=== PATIENT | female | born 1940 | race Caucasian/White ===

== ENCOUNTER 2019-03-16 20:03 | Emergency (ER) | payer OTHER ==
[2019-03-16 20:24] VITALS: BMI 16.2
--- NOTE | 2019-03-16 20:38 | PDOC ---
History of Present Illness - General Chief Complaint: Alcohol intoxication Stated Complaint: INTOX Time Seen by Provider: 03/16/19 20:29 History Source: Patient Exam Limitations: No Limitations - History of Present Illness Initial Comments: 03/16/19 20:37 Ruth Sanchez is an undomiciled 78F presenting for alcohol intoxication. Per EMS report, patient was [place] exposing herself along with bottles of vodka and Amaretto, has been seen at [facility] for intoxication multiple times almost every day the last 2 weeks. Per patient, she says she has no idea why she was brought to hospital and says her main complaint is that she is hungry. Says her last alcohol use was last night, one glass of scotch. Says her last meal was last night, probably a salad. Denies any withdrawal symptoms in the past. Also complains of SOB and worsening congestion with a chronic nonproductive cough. Denies fever/chills, nausea/vomiting/diarrhea, no abdominal pain. Has been living either on the streets or at a long term. Past History - Past Medical History Allergies/Adverse Reactions: Allergies Allergy/AdvReac Type Severity Reaction Status Date / Time No Known Allergies Allergy Verified 05/05/11 17:53 Asthma: No Cardiac Disorders: No COPD: No Diabetes: No GI Disorders: No Disorders: No HTN: No Kidney Stones: No Seizures: No - Surgical History Abdominal Surgery: No Appendectomy: No Cardiac Surgery: No Cholecystectomy: No Lung Surgery: No Neurologic Surgery: No Orthopedic Surgery: No - Psycho Social/Smoking Cessation Hx Smoking History: Never smoked Have you smoked in the past 12 months: No Number of Cigarettes Smoked Daily: 1 If you are a former smoker, when did you quit?: 3 months ago Information on smoking cessation initiated: No Hx Alcohol Use: Yes (03/16/2019) Drug/Substance Use Hx: No Substance Use Type: Alcohol Hx Substance Use Treatment: Yes Review of Systems - Review of Systems Able to Perform ROS?: Yes Constitutional: No: Chills, Fever HEENTM: No: Symptoms Reported Respiratory: Yes: Cough. No: Shortness of Breath, Productive cough, Hemoptysis Cardiac (ROS): No: Chest Pain, Irregular Heart Rate, Lightheadedness, Palpitations, Syncope, Chest Tightness ABD/GI: No: Constipated, Diarrhea, Nausea, Poor Appetite, Poor Fluid Intake, Vomiting : No: Symptoms Reported Musculoskeletal: No: Symptoms Reported Integumentary: No: Symptoms Reported Neurological: No: Symptoms reported Endocrine: No: Symptoms Reported Hematologic/Lymphatic: No: Symptoms Reported All Other Systems: Reviewed and Negative *Physical Exam - Vital Signs Last Vital Signs Temp Pulse Resp BP Pulse Ox 97.5 F L 87 16 103/61 95 03/16/19 20:21 03/16/19 20:21 03/16/19 20:21 03/16/19 20:21 03/16/19 20:21 - Physical Exam General Appearance: Yes: Appropriately Dressed, Disheveled, Thin. No: Apparent Distress HEENT: positive: EOMI, SHAWN, Normal Voice, Symmetrical, Pharynx Normal, Hearing Grossly Normal. negative: Scleral Icterus (R), Scleral Icterus (L), Pharyngeal Erythema, Tonsillar Exudate, Tonsillar Erythema Neck: positive: Trachea midline, Normal Thyroid, Supple. negative: Tender, Rigid, Lymphadenopathy (R), Lymphadenopathy (L) Respiratory/Chest: positive: Lungs Clear, Normal Breath Sounds. negative: Respiratory Distress, Accessory Muscle Use, Crackles, Rales, Rhonchi, Stridor, Wheezing Cardiovascular: positive: Regular Rhythm, Regular Rate. negative: Murmur Gastrointestinal/Abdominal: positive: Normal Bowel Sounds, Soft, Organomegaly. negative: Tender, Guarding, Rebound, Hernia Musculoskeletal: positive: Normal Inspection. negative: CVA Tenderness Extremity: positive: Normal Capillary Refill, Normal Range of Motion, Pedal Edema, Swelling, Other (mild 2+ pitting edema to both legs, non-tender, no sensory deficits, good strength). negative: Tender, Calf Tenderness Integumentary: positive: Normal Color, Dry, Warm. negative: Erythema Neurologic: positive: desizing pad operator II-XII NML intact, Fully Oriented (person, place, date ), Alert, Normal Mood/Affect, Normal Response, Motor Strength 5/5. negative: Facial Droop, Numbness, Confused, Disoriented ED Treatment Course - LABORATORY CBC & Chemistry Diagram: 03/16/19 21:45 03/16/19 21:45 Medical Decision Making - Medical Decision Making 03/17/19 01:23 Patient presents with acute intoxication, is alert/oriented but came by EMS for public intoxication and alcohol consumption. Complains only of cough, otherwise feels well. Getting CMP/CBC for basic eval, alcohol level for evaluation of level of intoxication given A/Ox3, CXR for eval cough for r/o PNA. Labs notable for: - CMP WNL - CBC WNL - BAL 180 CXR prelim read shows no evidence of focal infiltrate or PNA. Patient comfortably resting at this time, will allow to sober before discharge in AM. Nothing else to do at this time. 03/17/19 02:00 Attending discussed detox with patient, agrees to go, [facility] has no beds, need to call back at 7AM. Signed out to night team Dr. Garcia. Discharge - Discharge Information Problems reviewed: Yes Clinical Impression/Diagnosis: Alcohol intoxication Qualifiers: Complication of substance-induced condition: uncomplicated Qualified Code(s): F10.920 - Alcohol use, unspecified with intoxication, uncomplicated - Follow up/Referral - Patient Discharge Instructions Patient Printed Discharge Instructions: DI for Alcohol Abuse Additional Instructions: Today you were evaluated for alcohol intoxication and a cough. We did not find any problems on your labs or X-ray. In the future, please restrict your consumption of alcohol and avoid becoming drunk. We have included a referral to see our clinic for further care. If you experience any new or concerning symptoms, please return to the emergency room. - Post Discharge Activity
--- NOTE | 2019-03-16 20:43 | PDOC ---
Documentation entered by Camille Rodriguez SCRIBE, acting as scribe for Laura Syed MD. Laura Syed MD: This documentation has been prepared by the scribe, Camille Rodriguez SCRIBE, under my direction and personally reviewed by me in its entirety. I confirm that the documentation accurately reflects all work, treatment, procedures, and medical decision making performed by me. Attending Attestation - Resident Resident Name: [email or web address] - ED Attending Attestation I have performed the following: I have examined & evaluated the patient, The case was reviewed & discussed with the resident, I agree w/resident's findings & plan, Exceptions are as noted - HPI HPI: 03/16/19 21:51 The patient is a 78-year-old female with a past medical history significant for alcohol abuse was brought to the emergency department by the [place] [employer] department for alcohol intoxication. The patient was found outside a train station with her pants down, with bottles of liquor nearby. At the ER, the patient denies pain but states she is hungry and has a cough. The patient is currently homeless and walks around a lot. The officers that brought the patient to the ER reports, the patient was seen at [facility] several times in the last two weeks. - Physicial Exam PE: 03/16/19 20:43 Very thin elderly disheveled 78-year-old female presents intoxicated and is requesting food. Patient is disheveled with ABO head no scalp lacerations lungs ct b/l cvs [id number] extremities no deformities neuro ambulatory,moving all limbs,conversant, intoxxicated Rest of the exam agree with the Resident. 03/16/19 23:15 - Medical Decision Making 03/16/19 23:15 discharge when safe 03/16/19 23:17 Alcohol level 188 Chemistries show glucose =137 CBC shows a mild anemia 03/16/19 23:17 03/17/19 00:05 imp :alcohol intx
[2019-03-16 22:48] LABS: BASO % 0.6 % (0-2.0); EOS % 1.5 % (0-4.5); HEMATOCRIT 31.8 % (32.4-45.2); HEMOGLOBIN 10.6 GM/dL (10.7-15.3); LYMPH % 27.1 % (8-40); MCH 33.7 pg (25.7-33.7); MCHC 33.4 g/dl (32.0-36.0); MEAN CELL VOLUME 100.9 fl (80-96); MONO % 15.1 % (3.8-10.2); NEUT % 55.7 % (42.8-82.8); PLATELET COUNT 192 K/MM3 (134-434); RBC 3.15 M/mm3 (3.60-5.2); RDW 14.8 % (11.6-15.6); WHITE BLOOD COUNT 6.2 K/mm3 (4.0-10.0)
[2019-03-16 23:16] LABS: ALBUMIN 2.7 g/dl (3.4-5.0); BILIRUBIN,TOTAL 0.6 mg/dL (0.2-1); BLOOD UREA NITROGEN 8.8 mg/dL (7-18); CALCIUM 7.8 mg/dL (8.5-10.1); CREATININE 0.6 mg/dL (0.55-1.3); POTASSIUM 3.2 mmol/L (3.5-5.1)
--- NOTE | 2019-03-17 02:14 | PDOC ---
*Physical Exam - Vital Signs Last Vital Signs Temp Pulse Resp BP Pulse Ox 97.5 F L 87 16 103/61 95 03/16/19 20:21 03/16/19 20:21 03/16/19 20:21 03/16/19 20:21 03/16/19 20:21 ED Treatment Course - LABORATORY CBC & Chemistry Diagram: 03/16/19 21:45 03/16/19 21:45 - ADDITIONAL ORDERS Additional order review: Laboratory Results 03/16/19 03/16/19 21:45 21:45 Sodium 143 Potassium 3.2 L Chloride 112 H Carbon Dioxide 23 Anion Gap 9 BUN 8.8 Creatinine 0.6 Est GFR (CKD-EPI)AfAm 102.62 Est GFR (CKD-EPI)NonAf 88.54 Random Glucose 137 H Calcium 7.8 L Total Bilirubin 0.6 AST 24 ALT 19 Alkaline Phosphatase 77 Total Protein 6.0 L Albumin 2.7 L Alcohol, Quantitative 188.9 H 03/16/19 21:45 RBC 3.15 L MCV 100.9 H MCHC 33.4 RDW 14.8 MPV 7.0 L Neutrophils % 55.7 Lymphocytes % 27.1 Monocytes % 15.1 H Eosinophils % 1.5 Basophils % 0.6 Medical Decision Making - Medical Decision Making 03/17/19 02:12 Patient stable medically, pending transfer to [facility] in the morning Monitor for signs of withdrawal q2h Dispo: Discharge to [facility] to [facility] 03/17/19 05:31 - Patient resting comfortably, no acute distress 03/17/19 07:00 - Endorsed to day team, Dr. Holly Discharge - Discharge Information Problems reviewed: Yes Clinical Impression/Diagnosis: Alcohol intoxication Qualifiers: Complication of substance-induced condition: uncomplicated Qualified Code(s): F10.920 - Alcohol use, unspecified with intoxication, uncomplicated Condition: Good Disposition: HOME - Follow up/Referral - Patient Discharge Instructions Patient Printed Discharge Instructions: DI for Alcohol Abuse Additional Instructions: Today you were evaluated for alcohol intoxication and a cough. We did not find any problems on your labs or X-ray. In the future, please restrict your consumption of alcohol and avoid becoming drunk. We have included a referral to see our clinic for further care. If you experience any new or concerning symptoms, please return to the emergency room. - Post Discharge Activity
[2019-03-17 06:56] VITALS: TEMP 97.8
[2019-03-17 08:09] VITALS: BP 139/80; PULSE 94
--- NOTE | 2019-03-17 10:02 | PDOC ---
*Physical Exam - Vital Signs Last Vital Signs Temp Pulse Resp BP Pulse Ox 97.8 F 94 H 20 139/80 98 03/17/19 06:55 03/17/19 07:45 03/17/19 07:45 03/17/19 07:45 03/17/19 07:45 ED Treatment Course - LABORATORY CBC & Chemistry Diagram: 03/16/19 21:45 03/16/19 21:45 - ADDITIONAL ORDERS Additional order review: Laboratory Results 03/16/19 03/16/19 21:45 21:45 Sodium 143 Potassium 3.2 L Chloride 112 H Carbon Dioxide 23 Anion Gap 9 BUN 8.8 Creatinine 0.6 Est GFR (CKD-EPI)AfAm 102.62 Est GFR (CKD-EPI)NonAf 88.54 Random Glucose 137 H Calcium 7.8 L Total Bilirubin 0.6 AST 24 ALT 19 Alkaline Phosphatase 77 Total Protein 6.0 L Albumin 2.7 L Alcohol, Quantitative 188.9 H 03/16/19 21:45 RBC 3.15 L MCV 100.9 H MCHC 33.4 RDW 14.8 MPV 7.0 L Neutrophils % 55.7 Lymphocytes % 27.1 Monocytes % 15.1 H Eosinophils % 1.5 Basophils % 0.6 Medical Decision Making - Medical Decision Making 03/17/19 10:00 Signout from night team Patient presents with acute intoxication, is alert/oriented but came by EMS for public intoxication and alcohol consumption. Stable on re-eval. Pt refused to go to [place] home Discharge - Discharge Information Problems reviewed: Yes Clinical Impression/Diagnosis: Alcohol intoxication Qualifiers: Complication of substance-induced condition: uncomplicated Qualified Code(s): F10.920 - Alcohol use, unspecified with intoxication, uncomplicated Condition: Good Disposition: HOME - Admission No - Follow up/Referral - Patient Discharge Instructions Patient Printed Discharge Instructions: DI for Alcohol Abuse Additional Instructions: Today you were evaluated for alcohol intoxication and a cough. We did not find any problems on your labs or X-ray. In the future, please restrict your consumption of alcohol and avoid becoming drunk. We have included a referral to see our clinic for further care. If you experience any new or concerning symptoms, please return to the emergency room. - Post Discharge Activity
== END 2019-03-17 07:55 | disposition home or self-care (01) ==
LOC: JER 20:03
DX: F10.120 Alcohol abuse with intoxication, uncomplicated (principal); Y90.6 Blood alcohol level of 120-199 mg/100 ml; Z59.0 Homelessness
CPT/HCPCS: 36415; 71045-TC-FY; 80053; 80307; 85025; 99283-25

== ENCOUNTER 2019-04-09 20:17 | Emergency (ER) | payer OTHER ==
--- NOTE | 2019-04-09 20:26 | PDOC ---
Rapid Medical Evaluation Time Seen by Provider: 04/09/19 20:24 Medical Evaluation: Allergies Allergy/AdvReac Type Severity Reaction Status Date / Time No Known Allergies Allergy Verified 05/05/11 17:53 04/09/19 20:24 I have performed a brief in-person evaluation of this patient. The patient presents with a chief complaint of: homelessness. EMS states pt has been picked up the past 3 nights at [facility] per direction of police dept. Hx of ETOH. Pt c/o of L ankle swelling, per EMS pt has been seen/evaluated/traeted for that complaint at [facility] and [place] over past 3 nights. Pertinent physical exam findings: malodorous, otherwise well appearing, requesting steak/potatoes/wine I have ordered the following: labs, alcohol level The patient will proceed to the ED for further evaluation. Discharge Disposition - Diagnosis Alcohol intoxication - Referrals - Patient Instructions - Post Discharge Activity
[2019-04-09 20:33] VITALS: TEMP 97.3; BMI 24.7
--- NOTE | 2019-04-09 21:06 | PDOC ---
History of Present Illness - General Chief Complaint: Edema Stated Complaint: HOMELESS Time Seen by Provider: 04/09/19 20:24 - History of Present Illness Initial Comments: 04/09/19 21:04 78-year-old female intoxicated slurring her words presents for evaluation of left lower leg swelling x2 days poor historian unable to get accurate history. Patient is eating during interview. Appears intoxicated. Past History - Past Medical History Allergies/Adverse Reactions: Allergies Allergy/AdvReac Type Severity Reaction Status Date / Time No Known Allergies Allergy Verified 05/05/11 17:53 Asthma: No Cardiac Disorders: No COPD: No Diabetes: No GI Disorders: No Disorders: No HTN: No Kidney Stones: No Seizures: No - Surgical History Abdominal Surgery: No Appendectomy: No Cardiac Surgery: No Cholecystectomy: No Lung Surgery: No Neurologic Surgery: No Orthopedic Surgery: No - Psycho Social/Smoking Cessation Hx Smoking History: Never smoked Have you smoked in the past 12 months: No Number of Cigarettes Smoked Daily: 1 If you are a former smoker, when did you quit?: 3 months ago Hx Alcohol Use: Yes Drug/Substance Use Hx: No Substance Use Type: Alcohol Hx Substance Use Treatment: Yes Review of Systems - Review of Systems Musculoskeletal: Yes: See HPI *Physical Exam - Vital Signs Last Vital Signs Temp Pulse Resp BP Pulse Ox 97.3 F L 90 20 120/65 95 04/09/19 20:30 04/09/19 20:30 04/09/19 20:30 04/09/19 20:30 04/09/19 20:30 - Physical Exam 04/09/19 21:04 GENERAL: The patient is awake, alert, and fully oriented, in no acute distress. HEAD: Normal with no signs of trauma. EYES: sclera anicteric, conjunctiva clear. EXTREMITIES: Normal range of motion, no edema. No clubbing or cyanosis. No cords, erythema, or tenderness. Mild swelling left lower extremity subjective tenderness otherwise floppy NEUROLOGICAL: Cranial nerves II through XII grossly intact. PSYCH: Normal mood, normal affect. SKIN: Warm, Dry, normal turgor, no rashes or lesions noted. ED Treatment Course - RADIOLOGY Radiology Studies Ordered: Category Date Time Status DUPLEX VASCUL US-2LEGS [US] Stat Ultrasound 04/09/19 21:03 Ordered Medical Decision Making - Medical Decision Making 02/19/20 22:51 Patient signed out to the main emergency room at this time Discharge - Discharge Information Problems reviewed: Yes Clinical Impression/Diagnosis: Alcohol intoxication - Follow up/Referral - Patient Discharge Instructions - Post Discharge Activity
[2019-04-09 23:53] LABS: BASO % 0.2 % (0-2.0); EOS % 6.8 % (0-4.5); HEMATOCRIT 34.6 % (32.4-45.2); HEMOGLOBIN 11.7 GM/dL (10.7-15.3); LYMPH % 43.2 % (8-40); MCH 33.2 pg (25.7-33.7); MCHC 33.9 g/dl (32.0-36.0); MEAN PLT VOLUME 6.4 fl (7.5-11.1); MONO % 12.2 % (3.8-10.2); NEUT % 37.6 % (42.8-82.8); PLATELET COUNT 307 K/MM3 (134-434); RBC 3.53 M/mm3 (3.60-5.2); RDW 14.5 % (11.6-15.6); WHITE BLOOD COUNT 5.3 K/mm3 (4.0-10.0)
--- NOTE | 2019-04-10 00:01 | PDOC ---
*Physical Exam - Vital Signs Last Vital Signs Temp Pulse Resp BP Pulse Ox 97.3 F L 90 20 120/65 95 04/09/19 20:30 04/09/19 20:30 04/09/19 20:30 04/09/19 20:30 04/09/19 20:30 ED Treatment Course - LABORATORY CBC & Chemistry Diagram: 04/09/19 23:46 04/09/19 23:46 - ADDITIONAL ORDERS Additional order review: 04/09/19 23:46 RBC 3.53 L MCV 98.0 H MCHC 33.9 RDW 14.5 MPV 6.4 L Neutrophils % 37.6 L D Lymphocytes % 43.2 H D Monocytes % 12.2 H Eosinophils % 6.8 H D Basophils % 0.2 Medical Decision Making - Medical Decision Making 04/10/19 00:01 Patient seen by the advanced practice provider under my supervision. Ancillary testing reviewed as necessary. I agree with plan as outlined by the advanced practice provider. Discharge - Discharge Information Problems reviewed: Yes Clinical Impression/Diagnosis: Alcohol intoxication - Follow up/Referral - Patient Discharge Instructions - Post Discharge Activity
[2019-04-10 00:26] LABS: ALBUMIN 3.2 g/dl (3.4-5.0); ALK PHOS 96 U/L (45-117); ANION GAP 11 MMOL/L (8-16); BILIRUBIN,TOTAL 0.5 mg/dL (0.2-1); BLOOD UREA NITROGEN 16.5 mg/dL (7-18); CALCIUM 8.5 mg/dL (8.5-10.1); CHLORIDE 108 mmol/L (98-107); CO2 25 mmol/L (21-32); CREATININE 0.8 mg/dL (0.55-1.3); GLUCOSE,RANDOM 105 mg/dL (74-106); LIPASE 107 U/L (73-393); POTASSIUM 3.5 mmol/L (3.5-5.1); SGOT/AST 33 U/L (15-37); SGPT/ALT 27 U/L (13-61); SODIUM 143 mmol/L (136-145); TOT PROT 7.4 g/dl (6.4-8.2)
--- NOTE | 2019-04-10 00:42 | PDOC ---
*Physical Exam - Vital Signs Last Vital Signs Temp Pulse Resp BP Pulse Ox 97.3 F L 90 20 120/65 95 04/09/19 20:30 04/09/19 20:30 04/09/19 20:30 04/09/19 20:30 04/09/19 20:30 - Physical Exam General Appearance: Yes: Disheveled, Alcohol on Breath, Intoxicated. No: Apparent Distress Extremity: positive: Swelling (b/l calf swelling) <Corie Rea - Last Filed: 04/10/19 02:29> - Vital Signs Last Vital Signs Temp Pulse Resp BP Pulse Ox 97.3 F L 90 20 120/65 95 04/09/19 20:30 04/09/19 20:30 04/09/19 20:30 04/09/19 20:30 04/09/19 20:30 <Bonny Chakraborty Darcie - Last Filed: 04/10/19 04:56> ED Treatment Course - LABORATORY CBC & Chemistry Diagram: 04/09/19 23:46 04/09/19 23:46 - ADDITIONAL ORDERS Additional order review: Laboratory Results 04/09/19 23:46 Sodium 143 Potassium 3.5 Chloride 108 H Carbon Dioxide 25 Anion Gap 11 BUN 16.5 Creatinine 0.8 Est GFR (CKD-EPI)AfAm 83.00 Est GFR (CKD-EPI)NonAf 71.61 Random Glucose 105 Calcium 8.5 Total Bilirubin 0.5 AST 33 ALT 27 Alkaline Phosphatase 96 Creatine Kinase 115 Troponin I < 0.02 Total Protein 7.4 Albumin 3.2 L Lipase 107 Alcohol, Quantitative 195.7 H 04/09/19 23:46 RBC 3.53 L MCV 98.0 H MCHC 33.9 RDW 14.5 MPV 6.4 L Neutrophils % 37.6 L D Lymphocytes % 43.2 H D Monocytes % 12.2 H Eosinophils % 6.8 H D Basophils % 0.2 <Corie Rea - Last Filed: 04/10/19 02:29> - LABORATORY CBC & Chemistry Diagram: 04/09/19 23:46 04/09/19 23:46 - ADDITIONAL ORDERS Additional order review: Laboratory Results 04/09/19 23:46 Sodium 143 Potassium 3.5 Chloride 108 H Carbon Dioxide 25 Anion Gap 11 BUN 16.5 Creatinine 0.8 Est GFR (CKD-EPI)AfAm 83.00 Est GFR (CKD-EPI)NonAf 71.61 Random Glucose 105 Calcium 8.5 Total Bilirubin 0.5 AST 33 ALT 27 Alkaline Phosphatase 96 Creatine Kinase 115 Troponin I < 0.02 Total Protein 7.4 Albumin 3.2 L Lipase 107 Alcohol, Quantitative 195.7 H 04/09/19 23:46 RBC 3.53 L MCV 98.0 H MCHC 33.9 RDW 14.5 MPV 6.4 L Neutrophils % 37.6 L D Lymphocytes % 43.2 H D Monocytes % 12.2 H Eosinophils % 6.8 H D Basophils % 0.2 <Bonny Chakraborty - Last Filed: 04/10/19 04:56> Medical Decision Making - Medical Decision Making 04/10/19 01:54 Signout received from CHRISTOPHE Arteaga at 2200 hrs. on 04/09/2019. Patient presented for lower extremity swelling and intoxication. Apparently she has been worked up for these symptoms at other hospitals recently however she is unsure as to what they did. Basic labs, Doppler ordered. Lab work is grossly normal. Doppler results pending. Patient intoxicated with an alcohol of 145. Metabolize to freedom Sign out given to Dr. Salazar 04/10/19 02:30 Dopplers negative. <Corie Rea - Last Filed: 04/10/19 02:29> Discharge <Corie Rea - Last Filed: 04/10/19 02:29> - Discharge Information Problems reviewed: Yes - Admission No <Bonny Chakraborty - Last Filed: 04/10/19 04:56> - Discharge Information Clinical Impression/Diagnosis: Alcohol intoxication Disposition: HOME - Follow up/Referral [place] [facility] [place] [facility] [place] Group] - Patient Discharge Instructions Patient Printed Discharge Instructions: DI for Alcohol Abuse
[2019-04-10 05:04] VITALS: BP 120/60; PULSE 85
--- NOTE | 2019-04-10 14:13 | EKG ---
Test Reason : Blood Pressure : / mmHG Vent. Rate : 077 BPM Atrial Rate : 077 BPM P-R Int : 158 ms QRS Dur : 080 ms QT Int : 402 ms P-R-T Axes : 049 023 048 degrees QTc Int : 454 ms NORMAL SINUS RHYTHM CANNOT RULE OUT ANTERIOR INFARCT , AGE UNDETERMINED ABNORMAL ECG NO PREVIOUS ECGS AVAILABLE Confirmed by POP HOPOER MD ([id number]) on 04/10/2019 2:13:05 PM Referred By: Confirmed By:POP HOOPER MD
== END 2019-04-10 05:18 | disposition home or self-care (01) ==
LOC: JER 20:17 → JERFT 20:17 → JER 04-10 05:18
DX: F10.10 Alcohol abuse, uncomplicated (principal); Z59.0 Homelessness
CPT/HCPCS: 36415; 80053; 80307; 82550; 83690; 84484; 85025; 93005; 93010; 93970-TC; 99285-25